=== PATIENT | male | born 1995 | race Caucasian/White ===

== ENCOUNTER 2018-10-10 23:34 | Emergency (ER) | payer BC, OTHER ==
[2018-10-11] MEDS ORDERED: AMOXICILLIN TRIHYDRATE 500 MG CAPSULE PO ONE (00:56)
[2018-10-11] MEDS ORDERED: AMOXICILLIN TR/POT CLAVULANATE 500-125 MG TAB PO ONE (00:56)
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
--- NOTE | 2018-10-11 01:47 | RADIOLOGY REPORT (SQ) ---
CLINICAL HISTORY: right jaw pain COMPARISON: None. TECHNIQUE: CT MAXILLOFACIAL WITHOUT IV CONTRAST on 10/11/2018 12:57 AM CDT This exam was performed according to our departmental dose-optimization program, which includes automated exposure control, adjustment of the mA and/or kV according to patient size and/or use of iterative reconstruction technique. FINDINGS: There is no acute fracture. The paranasal sinuses are clear. Orbits and globes are unremarkable. Mastoid air cells are clear. Temporomandibular joints are intact. There are no significant soft tissue abnormalities. IMPRESSION: No post-traumatic findings.
[2018-10-11] MEDS ORDERED: IBUPROFEN 600 MG TABLET PO ONE (02:52)
[2018-10-11] MEDS ORDERED: ACETAMINOPHEN 325 MG TABLET PO ONE (02:52)
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
[2018-10-11 03:06] VITALS: BP 115/66
== END 2018-10-11 03:06 | disposition home or self-care (01) ==
LOC: ER 23:34
DX: S60.512A Abrasion of left hand, initial encounter (principal); S60.511A Abrasion of right hand, initial encounter; S39.92XA Unspecified injury of lower back, initial encounter; S09.93XA Unspecified injury of face, initial encounter; M54.5 Low back pain; Y04.0XXA Assault by unarmed brawl or fight, initial encounter; Y92.009 Unspecified place in unspecified non-institutional (private) residence as the place of occurrence of the external cause; F17.200 Nicotine dependence, unspecified, uncomplicated
CPT/HCPCS: 70486; 72110; 99284